=== PATIENT | female | born 1985 ===

== ENCOUNTER 2017-04-03 20:40 | Emergency (ER) | payer MEDICAID ==
[2017-04-03 20:41] VITALS: BMI 33.6
[2017-04-03 20:55] VITALS: BP 120/82; PULSE 80; RESP 16; TEMP 98.7; O2SAT 98
[2017-04-03] MEDS ORDERED: guaiFENesin 200 mg/10 ml Syrup UD PO STA (21:00)
[2017-04-03] MEDS ORDERED: Levalbuterol 1.25 MG/3 ML Inhal Soln UD IH STA (21:00)
--- NOTE | 2017-04-03 21:10 | ED PDOC ---
Arrival/HPI - General Chief Complaint: Chest Pain Time Seen by Provider: 04/03/17 20:59 Historian: Patient - History of Present Illness Narrative History of Present Illness (Text): 04/03/17 21:06 31 y.o. female whose past medical history includes SLE, diagnosed 3 months ago and maintained on prednisone and plaquenil, who comes to the emergency department with complaint of one week of upper chest pain, mostly mid sternal area that is worse with bending and deep breathing and experiencing some shortness of breathing and a mild cough. No abd pain but some nausea. Her temp has been slightly above normal, about 99.8 yesterday. No LE swelling or urinary symptoms. She has taken ibuprofen with partial relief. Past Medical History - Infectious Disease Hx of Infectious Diseases: None - Tetanus Immunization Tetanus Immunization: Unknown - Past Medical History Past Medical History: No Previous - Cardiac Hx Cardiac Disorders: No - Pulmonary Hx Respiratory Disorders: No - Neurological Hx Neurological Disorder: No - HEENT Hx HEENT Disorder: No - Renal Hx Renal Disorder: No - Endocrine/Metabolic Hx Endocrine Disorders: No - Hematological/Oncological Hx Blood Disorders: No - Musculoskeletal/Rheumatological Other/Comment: LUPUS - Gastrointestinal Hx Gastrointestinal Disorders: No - Genitourinary/Gynecological Hx Genitourinary Disorders: No - Psychiatric Hx Psychophysiologic Disorder: No Hx Substance Use: No - Past Surgical History Past Surgical History: No Previous - Anesthesia Hx Anesthesia: No - Suicidal Assessment Feels Threatened In Home Enviroment: No Family/Social History Family/Social History: Unknown Family HX Smoking Status: Never Smoked Hx Alcohol Use: No Hx Substance Use: No Hx Substance Use Treatment: No Allergies/Home Meds Allergies/Adverse Reactions: Allergies Penicillins Allergy (Verified 04/03/17 20:50) URTICARIA Home Medications: Home Meds Medication Instructions Recorded Confirmed Hydroxychloroquine Sulfate 200 mg PO BID 04/03/17 04/03/17 [Plaquenil] predniSONE [predniSONE Tab] 10 mg PO DAILY 04/03/17 04/03/17 Review of Systems - Review of Systems Constitutional: Fevers (low grade) ENT: Normal Respiratory: SOB, Cough Cardiovascular: Chest Pain Gastrointestinal: Nausea. absent: Abdominal Pain, Diarrhea, Vomiting Genitourinary Female: absent: Dysuria, Frequency Musculoskeletal: absent: Back Pain Skin: absent: Rash Neurological: absent: Headache Physical Exam Vital Signs Temp Pulse Resp BP Pulse Ox 04/03/17 20:51 98.7 F 80 16 120/82 98 Temperature: Afebrile Blood Pressure: Normal Pulse: Regular Respiratory Rate: Normal Appearance: Positive for: Well-Appearing, Non-Toxic, Comfortable Pain Distress: None Mental Status: Positive for: Alert and Oriented X 3 - Systems Exam Head: Present: Atraumatic, Normocephalic Pupils: Present: PERRL Conjunctiva: Present: Normal Mouth: Present: Moist Mucous Membranes Pharnyx: Present: Normal. No: ERYTHEMA, EXUDATE Neck: Present: Normal Range of Motion Respiratory/Chest: Present: Clear to Auscultation, Good Air Exchange, Tender to Palpation (reproducing pain in the upper chest in the second ICS b/L). No: Respiratory Distress, Accessory Muscle Use Cardiovascular: Present: Regular Rate and Rhythm, Normal S1, S2. No: Murmurs Abdomen: Present: Normal Bowel Sounds. No: Tenderness, Distention, Peritoneal Signs Back: Present: Normal Inspection Upper Extremity: Present: Normal Inspection. No: Cyanosis, Edema Lower Extremity: Present: Normal Inspection. No: Edema Neurological: Present: GCS=15, CN II-XII Intact, Speech Normal Skin: Present: Warm, Dry, Normal Color. No: Rashes Psychiatric: Present: Alert, Oriented x 3, Normal Insight, Normal Concentration Medical Decision Making ED Course and Treatment: 04/03/17 21:11 Patient with noted history of chest pain; differential diagnosis includes muscular pain, Bronchitis, PE, anxiety, GERD vs less likely acs. 04/03/17 22:13 EKG is unremarkable as are vitals. Labs are unremarkable, including negative d- dimer and normal CE - unlikely to be cardiac or PE. CXR is pending. Patient reports improvement with toradol, neb, and robitussin, reflective of possible bronchitis. If CXR shows no pneumonia, plan will be to d/c on nsaids and treat for bronchitis and follow up pmd. 04/03/17 22:32 CXR: nad as read by me - will d/c and treat for bronchitis and musculoskeletal pain. - Lab Interpretations Lab Results: 04/03/17 21:35 04/03/17 21:35 Lab Results 04/03/17 21:35: Sodium 139, Potassium 3.6, Chloride 103, Carbon Dioxide 26, Anion Gap 14, BUN 20, Creatinine 0.9, Est GFR ( Amer) > 60, Est GFR (Non- Af Amer) > 60, Random Glucose 80, Calcium 9.0, Magnesium 1.8, Total Bilirubin 0.5, AST 20, ALT 34, Alkaline Phosphatase 51, Lactate Dehydrogenase 368, Total Creatine Kinase 48, Troponin I < 0.01, NT-Pro-B Natriuret Pep 31.1, Total Protein 7.8, Albumin 4.1, Globulin 3.7, Albumin/Globulin Ratio 1.1 04/03/17 21:35: Urine Color Yellow, Urine Appearance Clear, Urine pH 6.5, Ur Specific [place] >= 1.030, Urine Protein Trace H, Urine Glucose (UA) Negative, Urine Ketones Negative, Urine Blood Negative, Urine Nitrate Negative, Urine Bilirubin Negative, Urine Urobilinogen 0.2, Ur Leukocyte Esterase Negative, Urine RBC Pending, Urine WBC Pending 04/03/17 21:35: PT 10.9, INR 1.01, APTT 25.1, D-Dimer, Quantitative 0.30 04/03/17 21:35: WBC 9.2 D, RBC 4.65, Hgb 13.3, Hct 40.5, MCV 87.1, MCH 28.6, MCHC 32.8, RDW 13.0, Plt Count 295, MPV 9.5, Gran % 60.5, Lymph % (Auto) 30.9, [place] % (Auto) 6.9 H, Eos % (Auto) 1.2 L, Baso % (Auto) 0.5, Gran # 5.55, Lymph # 2.8, [place] # 0.6, Eos # 0.1, Baso # 0.05 - RAD Interpretation Radiology Orders: 04/03/17 20:59 CHEST TWO VIEWS (PA/LAT) [RAD] Stat - EKG Interpretation EKG Interpretation (Text): 04/03/17 21:12 NSR @ 76; no ST/T changes; normal intervals and normal axis. Interpreted by ED Physician: Yes Type: 12 lead EKG Comparison: No previous EKG avail. - Medication Orders Current Medication Orders: Discontinued Medications Guaifenesin (Robitussin) 400 mg PO ONCE STA Stop: 04/03/17 21:01 Last Admin: 04/03/17 21:20 Dose: 400 mg Ketorolac Tromethamine (Toradol) 30 mg IVP STAT STA Stop: 04/03/17 21:01 Last Admin: 04/03/17 21:20 Dose: 30 mg Levalbuterol HCl (Xopenex) 1.25 mg IH STAT STA Stop: 04/03/17 21:01 Last Admin: 04/03/17 21:20 Dose: 1.25 mg Disposition/Present on Arrival - Present on Arrival Any Indicators Present on Arrival: No History of DVT/PE: No History of Uncontrolled Diabetes: No Urinary Catheter: No History of Decub. Ulcer: No History Surgical Site Infection Following: None - Disposition Have Diagnosis and Disposition been Completed?: Yes Diagnosis: Atypical chest pain, Bronchitis Disposition: HOME/ ROUTINE Disposition Time: 22:35 Patient Plan: Discharge Condition: GOOD Discharge Instructions (ExitCare): Acute Bronchitis (ED) Additional Instructions: Take the medications as prescribed. Use the naprosyn instead of ibuprofen (and take it with some food in your stomach). Also recommend Robitussin (OTC) - 4 teaspoons every 4 hours. Follow up with your primary care doctor. Return to the emergency department if any new concerning symptoms. Prescriptions: Albuterol HFA [Ventolin HFA 90 mcg/actuation (8 g)] 2 puff IH Q4H #1 inhaler Azithromycin [Zithromax] 2 tab PO DAILY #6 tab Naproxen [Naprosyn] 500 mg PO BID PRN #30 tab PRN Reason: Pain Referrals: Bozena Echevarria MD [Primary Care Provider] - Follow up with primary
[2017-04-03 21:43] LABS: ADD MANUAL DIFF? NO
[2017-04-03 21:52] LABS: BASO # 0.05 K/mm3 (0.0-2.0); BASO % 0.5 % (0.0-3.0); EOS # 0.1 (0.0-0.7); EOS % 1.2 % (1.5-5.0); GRAN # 5.55 (1.4-6.5); GRAN % 60.5 % (50.0-68.0); HEMATOCRIT 40.5 % (36.0-48.0); LYMPH # 2.8 (1.2-3.4); LYMPH % 30.9 % (22.0-35.0); MEAN CELL VOLUME 87.1 fL (80.0-105.0); MEAN CORPUSCULAR HEMOGLOBIN 28.6 pg (25.0-35.0); MEAN CORPUSCULAR HGB CONC 32.8 g/dl (31.0-37.0); MEAN PLATELET VOLUME 9.5 fl (7.0-11.0); MONO # 0.6 (0.1-0.6); MONO % 6.9 % (1.0-6.0); PLATELET COUNT 295 10^3/uL (120.0-450.0); WHITE BLOOD COUNT 9.2 10^3/ul (4.5-11.0)
[2017-04-03 21:57] LABS: ALB/GLOB RATIO 1.1 (1.1-1.8); ALKALINE PHOSPHATASE 51 U/L (38-133); ALT/SGPT 34 U/L (7-56); AST/SGOT 20 U/L (15-39); BILIRUBIN,TOTAL 0.5 mg/dL (0.2-1.3); BLOOD UREA NITROGEN 20 mg/dL (7-21); CARBON DIOXIDE 26 mmol/L (21-33); CHLORIDE 103 mmol/L (98-107); GFR AFRICAN-AMERICAN > 60; GLUCOSE,RANDOM 80 mg/dL (70-110); MAGNESIUM 1.8 mg/dL (1.7-2.2); POTASSIUM 3.6 mmol/L (3.6-5.0); SODIUM 139 mmol/L (132-148); TOTAL PROTEIN 7.8 g/dL (5.8-8.3)
[2017-04-03 22:01] LABS: INR 1.01 (0.93-1.08); PARTIAL THROMBOPLASTIN TIME 25.1 Seconds (23.7-30.8)
[2017-04-03 22:05] LABS: D DIMER 0.3 mg/L FEU (0-0.50)
[2017-04-03 22:06] LABS: PH,URINE 6.5 (4.7-8.0); URINE BILIRUBIN NEGATIVE (NEGATIVE); URINE BLOOD NEGATIVE (NEGATIVE); URINE GLUCOSE (UA) NEGATIVE (NEGATIVE); URINE KETONE NEGATIVE (NEGATIVE); URINE LEUKOCYTE ESTERASE NEGATIVE Leu/uL (NEGATIVE); URINE PROTEIN TRACE mg/dL (<30 mg/dL); URINE UROBILINOGEN 0.2 E.U./dL (<1 E.U./dL)
[2017-04-03 22:10] LABS: URINE APPEARANCE CLEAR (CLEAR); URINE COLOR YELLOW (YELLOW)
[2017-04-03 22:12] LABS: TROPONIN I < 0.01 ng/mL
[2017-04-03 22:35] LABS: URINE BACTERIA SMALL (NEG); URINE RBC 0 - 2 /hpf (0-2); URINE WBC 0 - 2 /hpf (0-6)
--- NOTE | 2017-04-04 08:15 | RAD ---
HISTORY: cp COMPARISON: 04/16/2016 TECHNIQUE: Chest PA and lateral FINDINGS: LUNGS: No active pulmonary disease. PLEURA: No significant pleural effusion identified. No pneumothorax apparent. CARDIOVASCULAR: Normal. OSSEOUS STRUCTURES: No significant abnormalities. VISUALIZED UPPER ABDOMEN: Normal. OTHER FINDINGS: None. IMPRESSION: No active disease.
--- NOTE | 2017-04-04 10:41 | CARD ---
APPROVED REPORT EKG Measurement Heart [id number] <Conclusion> Normal sinus rhythm Normal ECG
== END 2017-04-03 22:45 | disposition home or self-care (01) ==
LOC: ED 20:40
DX: R07.89 Other chest pain (principal); J20.9 Acute bronchitis, unspecified
CPT/HCPCS: 71020; 80053; 81001; 82550; 83615; 83735; 83880; 84484; 85025; 85378; 85610; 85730; 93005; 96374; 99283; J1885

== ENCOUNTER 2017-11-14 08:35 | Emergency (ER) | payer MEDICAID ==
[2017-11-14 08:35] VITALS: BMI 33.6
[2017-11-14 08:53] VITALS: O2SAT 99
--- NOTE | 2017-11-14 09:21 | ED PDOC ---
Arrival/HPI - General Chief Complaint: GI Problem Time Seen by Provider: 11/14/17 09:15 Historian: Patient - History of Present Illness Narrative History of Present Illness (Text): 11/14/17 09:23 31 year old female with Past medical history of SLE, fibromyalgia present to Emergency department for evaluation of intractable vomiting and sporadic watery diarrhea since last night. Patient states that her son has been sick with similar symptoms. Patient reports, (+) vomited "multiple times", non-bilious, non-bloody, has not been able to tolerate anything PO. Otherwise, pt denies fever, chills, dizziness, weakness, chest pain, shortness of breath, dyspnea, diaphoresis, palpitation, abd. pain, hematemesis, melena, back pain, UTI sx. At the time of evaluation, appears comfortable, not in any apparent distress. PSH: denies SH: lives at home with two children, no smoking, illicit drug or alcohol use FH: noncontributory Allergies: penicillins (hives) Past Medical History - Provider Review Nursing Documentation Reviewed: Yes - Travel History Have you recently traveled outside [place] w/in the past 3 mons?: No - Infectious Disease Hx of Infectious Diseases: None - Tetanus Immunization Tetanus Immunization: Unknown - Past Medical History Past Medical History: No Previous - Cardiac Hx Cardiac Disorders: No - Pulmonary Hx Respiratory Disorders: No - Neurological Hx Neurological Disorder: Yes Other/Comment: Fibromyalgia - HEENT Hx HEENT Disorder: No - Renal Hx Renal Disorder: No - Endocrine/Metabolic Hx Endocrine Disorders: Yes Hx Systemic Lupus Erythematosus: Yes - Hematological/Oncological Hx Blood Disorders: No - Musculoskeletal/Rheumatological Other/Comment: LUPUS - Gastrointestinal Hx Gastrointestinal Disorders: No - Genitourinary/Gynecological Hx Genitourinary Disorders: No - Psychiatric Hx Psychophysiologic Disorder: No Hx Substance Use: No - Past Surgical History Past Surgical History: No Previous - Anesthesia Hx Anesthesia: No - Suicidal Assessment Feels Threatened In Home Enviroment: No Family/Social History - Physician Review Nursing Documentation Reviewed: Yes Family/Social History: No Known Family HX Smoking Status: Never Smoked Hx Alcohol Use: No Hx Substance Use: No Hx Substance Use Treatment: No Allergies/Home Meds Allergies/Adverse Reactions: Allergies Penicillins Allergy (Verified 11/14/17 08:53) URTICARIA Review of Systems - Review of Systems Constitutional: Normal Eyes: Normal ENT: Normal Respiratory: Normal Cardiovascular: Normal Gastrointestinal: Diarrhea, Nausea, Vomiting Genitourinary Female: Normal Musculoskeletal: Normal Skin: Normal Neurological: Normal Endocrine: Normal Hemo/Lymphatic: Normal Psychiatric: Normal Physical Exam Vital Signs Temp Pulse Resp BP Pulse Ox 11/14/17 10:43 98.9 F 87 17 104/58 L 99 11/14/17 08:50 98.8 F 100 H 18 117/73 99 Temperature: Afebrile Blood Pressure: Normal Pulse: Regular Respiratory Rate: Normal Appearance: Positive for: Well-Appearing, Non-Toxic, Comfortable Pain Distress: None Mental Status: Positive for: Alert and Oriented X 3 - Systems Exam Conjunctiva: Present: Normal Ears: Present: NORMAL TM Mouth: Present: Moist Mucous Membranes. No: Drooling Pharnyx: No: ERYTHEMA, EXUDATE Neck: Present: Normal Range of Motion Respiratory/Chest: Present: Clear to Auscultation, Good Air Exchange. No: Respiratory Distress, Accessory Muscle Use Cardiovascular: Present: Regular Rate and Rhythm, Normal S1, S2. No: Murmurs, Tachycardic Abdomen: Present: Normal Bowel Sounds. No: Tenderness, Distention, Peritoneal Signs, Rebound, Guarding Back: No: CVA Tenderness Upper Extremity: Present: Normal ROM, NORMAL PULSES. No: Deformity Lower Extremity: Present: Normal ROM. No: Edema, CALF TENDERNESS, Deformity Neurological: Present: GCS=15, Speech Normal Skin: Present: Warm, Dry, Normal Color. No: Rashes Psychiatric: Present: Alert, Oriented x 3, Normal Insight, Normal Concentration Medical Decision Making ED Course and Treatment: 11/14/17 11:02 PT WAS OBS IN Emergency department FOR 2 HOURS AND REPORTS IMPROVEMENT IN SX. Pt was given PO challenge, tolerated well. 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 Afebrile, hemodynamicaly stable. Non-toxic. Neck; Supple, (-) JVD Lungs: CTA B/L, BS equal B/L. CVS: (+)S1S2, reg Abd: benign, (-) guarding, (-)rebound, (-) localized tenderness. back: (-) CVA tenderness Blood work review and appears without acute abnormalities, mild left shift noted. Pt has clinical findings c/w N/V/D r/o viral illness Pt advised on course of ds. ref. to f/u with PMD in 2-3 days for re-eval. return if any worsening or new changes. - Lab Interpretations Lab Results: 11/14/17 09:20 11/14/17 09:20 Lab Results 11/14/17 09:20: Sodium 140, Potassium 4.0, Chloride 106, Carbon Dioxide 25, Anion Gap 14, BUN 13, Creatinine 0.6 L, Est GFR ( Amer) > 60, Est GFR ( Non-Af Amer) > 60, Random Glucose 109, Calcium 9.3, Total Bilirubin 0.8, AST 24 , ALT 32, Alkaline Phosphatase 60, Total Protein 7.8, Albumin 4.2, Globulin 3.6 , Albumin/Globulin Ratio 1.2, Amylase 93, Lipase 69 11/14/17 09:20: WBC 10.8, RBC 5.10, Hgb 14.6, Hct 44.6, MCV 87.5, MCH 28.6, MCHC 32.7, RDW 12.7, Plt Count 240, MPV 9.8, Gran % 92.6 H, Lymph % (Auto) 3.8 L , [place] % (Auto) 3.0, Eos % (Auto) 0.5 L, Baso % (Auto) 0.1, Gran # 10.03 H, Lymph # 0.4 L, [place] # 0.3, Eos # 0.1, Baso # 0.01, Neutrophils % (Manual) 94 H, Lymphocytes % (Manual) 3 L, Monocytes % (Manual) 3 11/14/17 09:20: Urine Color Yellow, Urine Appearance Clear, Urine pH 7.0, Ur Specific [place] 1.010, Urine Protein 30 H, Urine Glucose (UA) Negative, Urine Ketones Negative, Urine Blood Negative, Urine Nitrate Negative, Urine Bilirubin Negative, Urine Urobilinogen 0.2, Ur Leukocyte Esterase Trace H, Urine RBC Negative, Urine WBC 1 - 3, Ur Epithelial Cells 3 - 4, Urine Bacteria Trace Interpretation: No sign. chg./baseline - Medication Orders Current Medication Orders: Discontinued Medications Famotidine (Pepcid) 20 mg IVP STAT STA Stop: 11/14/17 09:33 Last Admin: 11/14/17 09:47 Dose: 20 mg IVP Administration Document 11/14/17 09:47 CELESTINO (Rec: 11/14/17 09:52 [id number]) Charges for Administration # of IVP Administrations 1 Sodium Chloride (Sodium Chloride 0.9%) 1,000 mls @ 999 mls/hr IV .Q1H1M STA Stop: 11/14/17 10:37 Last Admin: 11/14/17 09:20 Dose: 999 mls/hr eMAR Start Stop Document 11/14/17 09:20 CELESTINO (Rec: 11/14/17 09:51 [id number] Intravenous Solution Start Date 11/14/17 Start Time 09:20 End Date 11/14/17 End time 10:20 Total Infusion Time 60 Ondansetron HCl (Zofran Inj) 4 mg IVP ONCE ONE Stop: 11/14/17 09:33 Last Admin: 11/14/17 09:45 Dose: 4 mg IVP Administration Document 11/14/17 09:45 CELESTINO (Rec: 11/14/17 09:52 [id number]) Charges for Administration # of IVP Administrations 1 Pantoprazole Sodium (Protonix Inj) 40 mg IVP STAT STA Stop: 11/14/17 09:33 Last Admin: 11/14/17 09:50 Dose: 40 mg IVP Administration Document 11/14/17 09:50 CELESTINO (Rec: 11/14/17 09:52 [id number]) Charges for Administration # of IVP Administrations 1 Disposition/Present on Arrival - Present on Arrival Any Indicators Present on Arrival: No History of DVT/PE: No History of Uncontrolled Diabetes: No Urinary Catheter: No History of Decub. Ulcer: No History Surgical Site Infection Following: None - Disposition Have Diagnosis and Disposition been Completed?: Yes Diagnosis: Vomiting, Diarrhea Disposition: HOME/ ROUTINE Disposition Time: 11:09 Patient Plan: Discharge Condition: STABLE Discharge Instructions (ExitCare): Gastroenteritis (ED), Acute Nausea and Vomiting (ED), Acute Diarrhea (ED) Additional Instructions: ENCOURAGE FLUIDS TAKE MEDICATION FOR VOMITING NEED BRAT DIET FOR 2-3 DAYS ( BANANA, RICE, APPLE SAUCE, TOAST). ADVANCE TOLERATED FOLLOW UP WITH PMD IN 2-3 DAYS FOR RE-EVALUATION. RETURN TO Emergency department IF ANY WORSENING OR NEW CHANGES. Prescriptions: Ondansetron ODT [Zofran ODT] 1 odt PO BID PRN #6 odt PRN Reason: Nausea/Vomiting Referrals: Mckayla Kim MD [Family Provider] - Follow up with primary Forms: [employer] (Vietnamese)
[2017-11-14] MEDS ORDERED: Sodium Chloride 0.9% 1,000 ML IV STA (09:37)
[2017-11-14 09:47] LABS: BASO # 0.01 K/mm3 (0.0-2.0); BASO % 0.1 % (0.0-3.0); EOS # 0.1 (0.0-0.7); EOS % 0.5 % (1.5-5.0); GRAN # 10.03 (1.4-6.5); GRAN % 92.6 % (50.0-68.0); HEMATOCRIT 44.6 % (36.0-48.0); LYMPH # 0.4 (1.2-3.4); LYMPH % 3.8 % (22.0-35.0); MEAN CELL VOLUME 87.5 fl (80.0-105.0); MEAN CORPUSCULAR HEMOGLOBIN 28.6 pg (25.0-35.0); MEAN CORPUSCULAR HGB CONC 32.7 g/dl (31.0-37.0); MEAN PLATELET VOLUME 9.8 fl (7.0-11.0); MONO # 0.3 (0.1-0.6); PLATELET COUNT 240 10^3/uL (120.0-450.0); RED CELL DISTRIBUTION WIDTH 12.7 % (11.5-14.5); URINE BILIRUBIN NEGATIVE (NEGATIVE); URINE BLOOD NEGATIVE (NEGATIVE); URINE GLUCOSE (UA) NEGATIVE (NEGATIVE); URINE KETONE NEGATIVE (NEGATIVE); URINE LEUKOCYTE ESTERASE TRACE Leu/uL (NEGATIVE); URINE PROTEIN 30 mg/dL (<30 mg/dL); URINE UROBILINOGEN 0.2 E.U./dL (<1 E.U./dL); WHITE BLOOD COUNT 10.8 10^3/ul (4.5-11.0)
[2017-11-14 09:51] LABS: URINE APPEARANCE CLEAR (CLEAR); URINE COLOR YELLOW (YELLOW)
[2017-11-14 09:56] LABS: ALB/GLOB RATIO 1.2 (1.1-1.8); ALKALINE PHOSPHATASE 60 U/L (38-126); ALT/SGPT 32 U/L (7-56); AMYLASE 93 U/L (35-125); AST/SGOT 24 U/L (14-36); BILIRUBIN,TOTAL 0.8 mg/dL (0.2-1.3); BLOOD UREA NITROGEN 13 mg/dL (7-21); CALCIUM 9.3 mg/dL (8.4-10.5); CARBON DIOXIDE 25 mmol/L (21-33); CHLORIDE 106 mmol/L (98-107); GFR AFRICAN-AMERICAN > 60; GLUCOSE,RANDOM 109 mg/dL (70-110); LIPASE 69 U/L (23-300); SODIUM 140 mmol/L (132-148); TOTAL PROTEIN 7.8 g/dL (5.8-8.3)
[2017-11-14 10:08] LABS: URINE BACTERIA TRACE (NEG); URINE RBC NEGATIVE /hpf (0-2)
[2017-11-14 10:16] LABS: NEUTROPHIL 94 % (50.0-70.0)
[2017-11-14 10:45] VITALS: BP 104/58; PULSE 87; RESP 17; TEMP 98.9
== END 2017-11-14 11:50 | disposition home or self-care (01) ==
LOC: ED 08:35
DX: R19.7 Diarrhea, unspecified (principal); R11.10 Vomiting, unspecified; M32.9 Systemic lupus erythematosus, unspecified; M79.7 Fibromyalgia; Z88.0 Allergy status to penicillin
CPT/HCPCS: 80053; 81001; 82150; 83690; 85025; 87086; 96361; 96374; 96375; 99283; C9113; J2405; J7040